=== PATIENT | male | born 1960 | race Caucasian/White ===

== ENCOUNTER → 2020-12-15 | Outpatient (CLI) | payer BC ==
[2020-12-15 11:28] LABS: HEMOGLOBIN 11.4 gm/dl (14.0-17.5); RED BLOOD COUNT 3.88 M/UL (4.20-5.50); WHITE BLOOD COUNT 3.4 K/UL (4.5-11.0)
[2020-12-15 12:06] LABS: BUN/CREATININE RATIO 19 (0-10)
[2020-12-16 09:14] LABS: THYROXINE (T4) 6.2 ug/dL (4.5-12.0)
== END ==
LOC: LAB 10:30
PROVIDERS: Nurse Practitioner
DX: E11.9 Type 2 diabetes mellitus without complications (principal); L03.115 Cellulitis of right lower limb; G90.09 Other idiopathic peripheral autonomic neuropathy; E78.5 Hyperlipidemia, unspecified; I10 Essential (primary) hypertension; Z94.0 Kidney transplant status; Z12.5 Encounter for screening for malignant neoplasm of prostate
CPT/HCPCS: 36415; 80053; 80061; 81001; 83036; 84153; 84436; 84443; 84480; 85025